=== PATIENT | male | born 2000 | race Hispanic/Latino ===

== ENCOUNTER 2021-08-01 14:08 | Emergency (ER) | payer OTHER ==
--- NOTE | 2021-08-01 15:55 | ER ---
Nurse's Notes [facility] Name: Mannie Brito Age: 21 yrs Sex: Male : 2000 Arrival Date: 08/01/2021 Time: 14:14 Bed Waiting Private MD: Diagnosis: Coronavirus infection, unspecified Presentation: 08/01 14:23 Chief complaint: Patient states: no sense of smell x 4-5 days ago. aa5 14:23 Method Of Arrival: Ambulatory aa5 14:23 Coronavirus screen: loss of taste or smell. Ebola Screen: Patient negative for fever aa5 greater than or equal to 101.5 degrees Fahrenheit, and additional compatible Ebola Virus Disease symptoms. Initial Sepsis Screen: Does the patient meet any 2 criteria? No. Patient's initial sepsis screen is negative. Does the patient have a suspected source of infection? No. Patient's initial sepsis screen is negative. Risk Assessment: Do you want to hurt yourself or someone else? Patient reports no desire to harm self or others. Onset of symptoms was June 2021. 14:23 Acuity: [place] 4 aa5 Historical: - Allergies: 14:27 No Known Allergies; aa5 - PMHx: 14:27 None; aa5 - PSHx: 14:27 Appendectomy; aa5 - Immunization history:: Client reports having NOT received the Covid vaccine. Vital Signs: 14:23 BP 135 / 79; Pulse 61; Resp 16 S; Temp 99.0(O); Pulse Ox 100% on R/A; Weight 77.11 kg aa5 (R); Height 5 ft. 7 in. (170.18 cm) (R); 14:23 Body Mass Index 26.63 (77.11 kg, 170.18 cm) aa5 ED Course: 14:14 Patient arrived in ED. as 14:20 Cas[facility] Bolanos [facility]C [facility] kb 14:20 Migdalia Bear MD is Attending Physician. kb 14:23 Arm band placed on. aa5 14:27 Triage completed. aa5 Administered Medications: No medications were administered Outcome: 15:54 Discharge ordered by MD. kb 16:11 Patient left the ED. kb Signatures: Casandra Bolanos FNP-C FNP-Tanya Phelan Audri, RN RN aa5 Corrections: (The following items were deleted from the chart) 14:26 14:25 Arm band placed on aa5 aa5
--- NOTE | 2021-08-01 15:55 | EDPHYS ---
Physician Documentation [facility] Name: Mannie Brito Age: 21 yrs Sex: Male : 2000 Arrival Date: 08/01/2021 Time: 14:14 Bed Waiting Private MD: ED Physician Migdalia Bear HPI: 08/01 15:03 This 21 yrs old Male presents to ER via Ambulatory with complaints of r/o kb covid. 15:03 The patient or guardian reports loss of smell. Onset: The symptoms/episode kb began/occurred 4 day(s) ago. Severity of symptoms: At their worst the symptoms were very mild, in the emergency department the symptoms are unchanged. Modifying factors: The symptoms are alleviated by nothing, the symptoms are aggravated by nothing. Associated signs and symptoms: The patient has no apparent associated signs or symptoms. The patient has not experienced similar symptoms in the past. The patient has not recently seen a physician. Pt reports loss of smell for 4-5 days. Historical: - Allergies: 14:27 No Known Allergies; aa5 - PMHx: 14:27 None; aa5 - PSHx: 14:27 Appendectomy; aa5 - Immunization history:: Client reports having NOT received the Covid vaccine. ROS: 15:03 Constitutional: Negative for fever, chills, and weight loss. kb 15:03 ENT: Positive for loss of smell. 15:03 All other systems are negative. Exam: 15:03 Constitutional: This is a well developed, well nourished patient who is awake, alert, kb and in no acute distress. Head/Face: Normocephalic, atraumatic. ENT: Moist Mucous membranes Respiratory: Respirations even and unlabored. No increased work of breathing, no retractions or nasal flaring. Skin: Warm, dry with normal turgor. Normal color. MS/ Extremity: Pulses equal, no cyanosis. Neurovascular intact. Full, normal range of motion. Neuro: Awake and alert, GCS 15, oriented to person, place, time, and situation. Moves all extremities. Normal gait. Psych: Awake, alert, with orientation to person, place and time. Behavior, mood, and affect are within normal limits. Vital Signs: 14:23 BP 135 / 79; Pulse 61; Resp 16 S; Temp 99.0(O); Pulse Ox 100% on R/A; Weight 77.11 kg aa5 (R); Height 5 ft. 7 in. (170.18 cm) (R); 14:23 Body Mass Index 26.63 (77.11 kg, 170.18 cm) aa5 MDM: 14:20 Patient medically screened. kb 15:03 Data reviewed: vital signs, nurses notes. Data interpreted: Pulse oximetry: on room air kb is 100 %. Interpretation: normal. Counseling: I had a detailed discussion with the patient and/or guardian regarding: the historical points, exam findings, and any diagnostic results supporting the discharge/admit diagnosis, lab results, the need for outpatient follow up, a family practitioner, to return to the emergency department if symptoms worsen or persist or if there are any questions or concerns that arise at home. 08/01 14:21 Order name: COVID-19 : Document "Date of Symptom Onset" if Symptomatic. kb 08/01 15:44 Order name: SARS-COV-2 RT PCR; Complete Time: 15:54 EDMS Administered Medications: No medications were administered Disposition Summary: 08/01/21 15:54 Discharge Ordered Location: Home kb Condition: Stable kb Diagnosis - Coronavirus infection, unspecified kb Followup: kb - With: Emergency Department - When: As needed - Reason: Worsening of condition Followup: kb - With: Private Physician - When: 2 - 3 days - Reason: Recheck today's complaints, Continuance of care, Re-evaluation by your physician Discharge Instructions: - Discharge Summary Sheet kb - Viral Respiratory Infection, [id number] kb - COVID-19 kb - COVID-19 Frequently Asked Questions kb - 10 Things You Can Do to Manage Your COVID-19 Symptoms at Home - [facility] kb Forms: - Medication Reconciliation Form kb - Thank You Letter kb - Antibiotic Education kb - Prescription Opioid Use kb Signatures: Dispatcher [employer] EDMS Casandra Bolaons FNP-C FNP-Zena George RN RN aa5 Corrections: (The following items were deleted from the chart) 14:47 14:21 CORONAVIRUS ordered. EDMS EDMS
[2021-08-01 16:24] VITALS: BP 135/79; TEMP 99; O2SAT 100
== END 2021-08-01 16:11 | disposition home or self-care (01) ==
LOC: ER 14:08
DX: U07.1 COVID-19 (principal)
CPT/HCPCS: 99281; U0003